=== PATIENT | male | born 1995 | race Hispanic/Latino ===

== ENCOUNTER → 2022-12-25 | Day surgery (SDC) | payer OTHER ==
[~2022-12-25] MED LIST: ABILIFY20 MG PO; CARBAMAZEPINE200 MG PO; DOXYCYCLINE HY100 MG PO; FENTANYL CITRATE/PF 100MCG/2 ML INJ ONE; GLUCAGON FOR INJ 1 MG VIAL ONE; HYOSCYAMINE SULFATE 0.5 MG/ML INJ ONE; LIDOCAINE HCL 2% LOCAL INJ 5 ML SDV VIAL INJ ONE; LOPID600 MG PO; METOCLOPRAMIDE HCL 10 MG/2ML VIAL ONE; NICORETTE2 MG PO; ONDANSETRON HCL INJ 2MG/ML 2ML 2 MG/ML VIAL ONE; POVIDONE IODINE 0.05% 0.05 % ML PO ONE; PROPOFOL IV EMULSION 10 MG/ML 20 ML VIAL ONE; PROPOFOL IV EMULSION 50 ML IV ONE; STRATTERA80 MG PO
[2022-12-25 11:35] VITALS: BP 125/88
== END | disposition home or self-care (01) ==
LOC: OR 07:45
PROVIDERS: ATTEND Internal Medicine Gastroenterology
DX: K29.50 Unspecified chronic gastritis without bleeding (principal); K31.7 Polyp of stomach and duodenum; K22.10 Ulcer of esophagus without bleeding; K52.9 Noninfective gastroenteritis and colitis, unspecified; K21.9 Gastro-esophageal reflux disease without esophagitis; K44.9 Diaphragmatic hernia without obstruction or gangrene; K62.89 Other specified diseases of anus and rectum; K64.8 Other hemorrhoids; E78.5 Hyperlipidemia, unspecified; F90.9 Attention-deficit hyperactivity disorder, unspecified type; F31.9 Bipolar disorder, unspecified; F17.200 Nicotine dependence, unspecified, uncomplicated; Z79.899 Other long term (current) drug therapy
CPT/HCPCS: 43239; 43450; 45378; 45380; 83630; 83993; 87045; 87177; 87324; 87328; 87449; J1610; J1980; J2001; J2405; J2765; J3010

== ENCOUNTER 2023-03-20 22:41 | Emergency (ER) | payer OTHER ==
[~2023-03-20] VITALS: Ht 175.3 cm; Wt 81.6 kg
[~2023-03-20 22:41] MED LIST changes: -FENTANYL CITRATE/PF 100MCG/2 ML INJ ONE; -GLUCAGON FOR INJ 1 MG VIAL ONE; -HYOSCYAMINE SULFATE 0.5 MG/ML INJ ONE; -LIDOCAINE HCL 2% LOCAL INJ 5 ML SDV VIAL INJ ONE; -METOCLOPRAMIDE HCL 10 MG/2ML VIAL ONE; -ONDANSETRON HCL INJ 2MG/ML 2ML 2 MG/ML VIAL ONE; -POVIDONE IODINE 0.05% 0.05 % ML PO ONE; -PROPOFOL IV EMULSION 10 MG/ML 20 ML VIAL ONE; -PROPOFOL IV EMULSION 50 ML IV ONE
[2023-03-20] MEDS ORDERED: KETOROLAC TROMETHAMINE 30 MG/ML VIAL IV STA (22:52)
[2023-03-20] MEDS ORDERED: FIORICET 50-301 EACH PO (22:54)
[2023-03-20] MEDS ORDERED: ACETAMIN/BUTALBITAL/CAFFEINE TAB PO ONE (23:00)
[2023-03-20] MEDS ORDERED: SODIUM CHLORIDE 0.9% 1000ML 1,000 ML IV ONE (23:00)
[2023-03-20] MEDS ORDERED: METOCLOPRAMIDE HCL 10 MG/2ML VIAL IV ONE (23:00)
[2023-03-20] MEDS ORDERED: DIPHENHYDRAMINE HCL INJ 50 MG/ML VIAL IV ONE (23:00)
[2023-03-21 00:06] VITALS: BP 141/93
== END 2023-03-21 00:08 | disposition home or self-care (01) ==
LOC: ER 22:50
DX: G43.909 Migraine, unspecified, not intractable, without status migrainosus (principal); F31.9 Bipolar disorder, unspecified; F90.9 Attention-deficit hyperactivity disorder, unspecified type; F17.210 Nicotine dependence, cigarettes, uncomplicated
CPT/HCPCS: 99284; J1200; J1885; J2765; J7030

== ENCOUNTER 2023-03-27 11:04 | Emergency (ER) | payer OTHER ==
[~2023-03-27] VITALS: Ht 175.3 cm; Wt 81.6 kg
[~2023-03-27 11:04] MED LIST changes: +FIORICET 50-301 EACH PO
[2023-03-27 11:06] VITALS: O2SAT 100
== END 2023-03-27 11:28 | disposition home or self-care (01) ==
LOC: ER 11:10
DX: G43.909 Migraine, unspecified, not intractable, without status migrainosus (principal); F90.9 Attention-deficit hyperactivity disorder, unspecified type; F31.9 Bipolar disorder, unspecified
CPT/HCPCS: 99282

== ENCOUNTER → 2023-03-31 | Day surgery (SDC) | payer OTHER ==
[~2023-03-31] MED LIST changes: +LACTATED RINGER'S 1,000 ML ONE; +LIDOCAINE HCL 2% LOCAL INJ 5 ML SDV VIAL INJ ONE; +METOCLOPRAMIDE HCL 10 MG/2ML VIAL ONE; +PROPOFOL IV EMULSION 10 MG/ML 20 ML VIAL ONE
[2023-03-31 10:25] VITALS: BP 118/68; PULSE 73; RESP 16; O2SAT 97
== END | disposition home or self-care (01) ==
LOC: ENDO 09:11
PROVIDERS: ATTEND Internal Medicine Gastroenterology
DX: K21.00 Gastro-esophageal reflux disease with esophagitis, without bleeding (principal); K29.70 Gastritis, unspecified, without bleeding; K29.80 Duodenitis without bleeding; K22.10 Ulcer of esophagus without bleeding; K44.9 Diaphragmatic hernia without obstruction or gangrene; K21.9 Gastro-esophageal reflux disease without esophagitis; R74.8 Abnormal levels of other serum enzymes; E78.00 Pure hypercholesterolemia, unspecified; R03.0 Elevated blood-pressure reading, without diagnosis of hypertension; Z71.89 Other specified counseling; G43.909 Migraine, unspecified, not intractable, without status migrainosus; F90.9 Attention-deficit hyperactivity disorder, unspecified type; F31.9 Bipolar disorder, unspecified; Z79.899 Other long term (current) drug therapy; F17.210 Nicotine dependence, cigarettes, uncomplicated; Z71.6 Tobacco abuse counseling; Z68.28 Body mass index [BMI] 28.0-28.9, adult; Z86.16 Personal history of COVID-19
CPT/HCPCS: 43239; 43450; C9113; J2001; J2704; J2765; J7121

== ENCOUNTER → 2023-04-05 | Outpatient (CLI) | payer OTHER ==
[~2023-04-05] MED LIST changes: -LACTATED RINGER'S 1,000 ML ONE; -LIDOCAINE HCL 2% LOCAL INJ 5 ML SDV VIAL INJ ONE; -METOCLOPRAMIDE HCL 10 MG/2ML VIAL ONE; -PROPOFOL IV EMULSION 10 MG/ML 20 ML VIAL ONE
== END ==
LOC: US 08:32
PROVIDERS: ATTEND Internal Medicine Gastroenterology
DX: R74.8 Abnormal levels of other serum enzymes (principal)
CPT/HCPCS: 76700

== ENCOUNTER 2025-03-03 16:13 | Emergency (ER) | payer OTHER ==
[~2025-03-03] VITALS: Ht 180.3 cm; Wt 99.8 kg
[~2025-03-03 16:13] MED LIST changes: +DICYCLOMINE HCL20 MG PO; +ONDANSETRON ODT4 MG PO
[2025-03-03] MEDS: IBUPROFEN 400 MG TAB PO ONE (17:18)
[2025-03-03] MEDS: ACETAMINOPHEN 325 MG TAB PO ONE (17:18)
[2025-03-03] MEDS: ONDANSETRON HCL INJ 2MG/ML 2ML 2 MG/ML VIAL IV STA (17:18)
[2025-03-03] MEDS ORDERED: SODIUM CHLORIDE 0.9% 1000ML 2,000 ML ONE (18:06)
[2025-03-03 18:12] LABS: HEMATOCRIT 38.6 % (38.2-49.6); MEAN CORPUSCULAR HEMOGLOBIN 22.3 pg (28-32); MEAN CORPUSCULAR HGB CONC 31.1 g/dL (31-35); MEAN CORPUSCULAR VOLUME 71.6 fL (81-99); NEUTROPHILS % 72.9 % (38.7-80.0); PLATELET COUNT 236 x10e3/uL (140-360); RED BLOOD COUNT 5.39 x10e6/uL (4.3-5.7); RED CELL DISTRIBUTION WIDTH 16.6 % (11.7-14.4); WHITE BLOOD COUNT 10.42 x10e3/uL (4.8-10.8)
[2025-03-03 18:13] LABS: BASOPHILS % 0.3 % (0.0-1.0); EOSINOPHILS # (AUTO) 0.2 (0.0-0.4); EOSINOPHILS % 1.5 % (0.0-6.0); LYMPHOCYTES # (AUTO) 1.4 (1.0-3.2); LYMPHOCYTES % 13.5 % (18.0-39.1); MONOCYTES # (AUTO) 1.2 (0.2-0.8); MONOCYTES % 11.5 % (4.4-11.3); NEUTROPHILS # (AUTO) 7.6 (2.1-6.9)
[2025-03-03] MEDS: SODIUM CHLORIDE 0.9% 1000ML 1,000 ML IV SCH ×2 (18:15→18:16)
[2025-03-03 18:20] VITALS: PULSE 89; RESP 17
[2025-03-03 18:21] LABS: CORONAVIRUS COVID-19 AG NEGATIVE (NEGATIVE); INFLUENZA A AG NEGATIVE (NEGATIVE); INFLUENZA B AG NEGATIVE (NEGATIVE)
[2025-03-03 18:27] LABS: ANION GAP 16.9 mmol/L (8-16); POTASSIUM 3.9 mmol/L (3.5-5.1)
[2025-03-03 18:28] LABS: ALBUMIN 4.1 g/dL (3.5-5.0); ALBUMIN/GLOBULIN RATIO 1.1 (0.8-2.0); BILIRUBIN,TOTAL 0.2 mg/dL (0.2-1.2); CALCIUM 8.4 mg/dL (8.4-10.2); CREATININE, SERUM 0.85 mg/dL (0.72-1.25); TOTAL PROTEIN 7.7 g/dL (6.5-8.1)
[2025-03-03 18:31] VITALS: TEMP 99.3
[2025-03-03] MEDS ORDERED: DOXYCYCLINE HY100 MG PO (18:50)
[2025-03-03 20:47] VITALS: BP 119/65; PULSE 70; RESP 18; TEMP 98.3; O2SAT 98
== END 2025-03-03 20:45 | disposition home or self-care (01) ==
LOC: ER 17:38
DX: R50.9 Fever, unspecified (principal); J18.9 Pneumonia, unspecified organism; R05.9 Cough, unspecified; E78.5 Hyperlipidemia, unspecified; F31.9 Bipolar disorder, unspecified; F17.290 Nicotine dependence, other tobacco product, uncomplicated; Z11.52 Encounter for screening for COVID-19
CPT/HCPCS: 36415; 71046; 80053; 83605; 85025; 87040; 87428; 99284; J0456; J0696; J2405; J7030; J7050